=== PATIENT | male | born 1965 | race African-American/Black ===

== ENCOUNTER 2018-09-17 06:39 | Emergency (ER) | payer MEDICAID ==
[~2018-09-17] VITALS: Ht 170.2 cm; Wt 72.8 kg
[2018-09-17 06:41] VITALS: BP 131/97
--- NOTE | 2018-09-17 06:57 | NUR ---
Pt brought to room 41, c/o urinary retention x approx9-10 hours. Reports hx BHP, curently takes flomax daily, with hx of urinary cath approx 6 mo ago "for the same thing". Bladder pain and distention noted. Bladder scan yields approx 500cc, MD notified. Bedside report given to Jocelyne NELSON.
--- NOTE | 2018-09-17 07:01 | NUR ---
Bladder Scan: 618cc
[2018-09-17 07:36] LABS: MICROSCOPIC AUTO
[2018-09-17 07:37] LABS: CULTURE INDICATED? NO
--- NOTE | 2018-09-17 07:38 | NUR ---
LATE NOTE ENTRY FOR 0645: Received report from OMAR Baumann. All questions answered. NADN. Pt expressing 10/10 periumbillical pain and distension with discomfort sitting or laying down. Pt reports last void of urine was at 10 pm 09/16/18.
--- NOTE | 2018-09-17 07:39 | NUR ---
Luis catheter placed at 0720. Approximately 500 mL drained at 0727. Pt states, "I feel much better now." NADN. No other needs expressed. Pt resting on gurney with call light within reach. Bedrail up x 1.
--- NOTE | 2018-09-17 08:32 | NUR ---
Patient given discharge instructions and they have confirmed that they understand the instructions. Patient ambulatory with steady gait. Approximately 600 mL of clear yellow urine emptimed from Luis catheter. Leg bag placed. Pt left with d/c paperwork, prescripition, and all personal belongings. NADN. Pt encouraged to return if symptoms worsen or change.
--- NOTE | 2018-09-17 10:00 | NUR ---
LATE NOTE TERRA FOR 0840: Pt asking to see MD. Pt states, "I am leaking urine around the catheter." Discontinued Luis catheter 12 [address]. Placed new Luis cather 18 Venezuelan. 18 [place]an catheter placed without resistance felt per Policy and ED MD orders. Light pink to red urine out put observed.
--- NOTE | 2018-09-17 10:01 | NUR ---
LATE NOTE FOR 0910: Pt states, "It is still leaking around it. It feels like it is plugged." ED PA to recheck.
--- NOTE | 2018-09-17 10:02 | NUR ---
Finished hand irrigation of falcon catheter per ED MD and ED PA orders. Blood clots drained approximately 2 cm in diameter. Irrigation of falcon until clear drainage. Re-bladderscanned, pt has 86 mL of urine scanned. ED MD notified. Pt waiting for recheck by provider. ERICA. No needs expressed. Call light within reach.
--- NOTE | 2018-09-17 10:12 | NUR ---
Patient given discharge instructions and they have confirmed that they understand the instructions. Patient ambulatory with steady gait. Pt left with all d/c paperwork, prescription, and personal belongings. Pt encouraged to return to ED if symptoms worsen or change.
[2018-11-07] MEDS ORDERED: TAMS-11 PO (13:23)
== END 2018-09-17 08:35 | disposition home or self-care (01) ==
LOC: ED 07:34
DX: N40.1 Benign prostatic hyperplasia with lower urinary tract symptoms (principal); R33.8 Other retention of urine
CPT/HCPCS: 51702; 81001; 99284

== ENCOUNTER 2018-09-21 00:25 | Emergency (ER) | payer MEDICAID ==
[~2018-09-21] VITALS: Ht 172.7 cm; Wt 70.0 kg
--- NOTE | 2018-09-21 01:26 | NUR ---
After multiple attempts to flush cath, falcon d/c'd per ERP. Pt to attempt to void on his own. If unable, pt understands that a new falcon will have to be placed.
--- NOTE | 2018-09-21 01:30 | NUR ---
Pt able to void. States noted clots in urine. Pt feels less distended. States relief after urination. Pt to be d/c home.
[2018-09-21 01:38] VITALS: BP 121/82
[2018-11-07] MEDS ORDERED: TAMS-11 PO (13:23)
== END 2018-09-21 01:41 | disposition home or self-care (01) ==
LOC: ED 01:05
DX: T83.098A Other mechanical complication of other urinary catheter, initial encounter (principal); N40.0 Benign prostatic hyperplasia without lower urinary tract symptoms; F17.200 Nicotine dependence, unspecified, uncomplicated
CPT/HCPCS: 99284

== ENCOUNTER 2018-10-02 15:50 | Emergency (ER) | payer MEDICAID ==
[~2018-10-02] VITALS: Ht 172.7 cm; Wt 70.7 kg
[2018-10-02 16:34] VITALS: BP 110/75
== END 2018-10-02 18:04 | disposition left against medical advice (07) ==
LOC: ED 17:58
DX: R10.30 Lower abdominal pain, unspecified (principal)
CPT/HCPCS: 99281

== ENCOUNTER 2019-04-05 03:29 | Emergency (ER) | payer MEDICAID, OTHER ==
[~2019-04-05] VITALS: Ht 172.7 cm; Wt 73.6 kg
[~2019-04-05 03:29] MED LIST: TAMS-11 PO
--- NOTE | 2019-04-05 04:06 | NUR ---
Quick cath performed on pt for urinary retention. 650 ml urine obtained in cath. Pt reports relief from his discomfort.
[2019-04-05 04:12] LABS: ALBUMIN 4.2 g/dL (3.4-5.0); ANION GAP 9 mmol/L (5-15); CALCIUM 9.4 mg/dL (8.5-10.1); CHLORIDE 108 mmol/L (98-107); CREATININE 1.17 mg/dL (0.7-1.3)
[2019-04-05 04:30] LABS: MICROSCOPIC AUTO
[2019-04-05 04:32] LABS: CULTURE INDICATED? YES
[2019-04-05] MEDS ORDERED: CIPROFLOXACIN 500 MG TABLET ONE (04:45)
[2019-04-05] MEDS ORDERED: CIPROFLOXACIN 500 MG TABLET PO ONE (05:00)
[2019-04-05 05:22] VITALS: BP 116/77
== END 2019-04-05 05:29 | disposition home or self-care (01) ==
LOC: ED 05:21
DX: N40.1 Benign prostatic hyperplasia with lower urinary tract symptoms (principal); N30.00 Acute cystitis without hematuria; F17.210 Nicotine dependence, cigarettes, uncomplicated
CPT/HCPCS: 36415; 51702; 80048; 81001; 82040; 87077; 87086; 87186; 99284; 99406

== ENCOUNTER 2019-05-12 04:02 | Emergency (ER) | payer SELFPAY ==
[~2019-05-12] VITALS: Ht 170.2 cm; Wt 73.0 kg
--- NOTE | 2019-05-12 05:01 | NUR ---
urine straight cath completed by sonu sutherland. informed pt with 700cc urine output. urine sample sent to lab
[2019-05-12 05:18] LABS: MICROSCOPIC AUTO
[2019-05-12 05:23] LABS: CULTURE INDICATED? YES
[2019-05-12 05:56] VITALS: BP 104/62
--- NOTE | 2019-05-12 06:00 | NUR ---
pt up in room using urinal, 50cc urine output noted, will update pa
--- NOTE | 2019-05-12 06:05 | NUR ---
pt up to use urinal and 40 cc of urine noted
== END 2019-05-12 06:17 | disposition home or self-care (01) ==
LOC: ED 05:54
DX: N30.01 Acute cystitis with hematuria (principal); N40.1 Benign prostatic hyperplasia with lower urinary tract symptoms; R33.8 Other retention of urine
CPT/HCPCS: 51701; 81001; 87077; 87086; 87186; 99283; P9612